=== PATIENT | female | born 2000 | race American Indian/Alaskan Native ===

== ENCOUNTER 2021-06-06 20:13 | Emergency (ER) | payer SELFPAY ==
--- NOTE | 2021-06-06 21:25 | XRay Report ---
CHEST 2 VIEWS INDICATION / CLINICAL INFORMATION: CHEST PAIN. COMPARISON: None available. FINDINGS: SUPPORT DEVICES: None. HEART / MEDIASTINUM: No significant abnormality. LUNGS / PLEURA: No significant pulmonary abnormality. No significant pleural effusion. No pneumothora x. ADDITIONAL FINDINGS: No significant additional findings. IMPRESSION: 1. No acute abnormality of the chest. Signer Name: Macho Ohara MD Signed: 06/06/2021 9:20 PM Workstation Name: [id number]
[2021-06-06 21:26] LABS: Basophils % (Auto) 0.5 % (0.0-1.8); Eosinophils # (Auto) 0.1 K/mm3 (0.0-0.4); Hematocrit 39.5 % (30.3-42.9); Hemoglobin 12.3 gm/dl (10.1-14.3); Lymphocytes # (Auto) 2.5 K/mm3 (1.2-5.4); Lymphocytes % (Auto) 41.3 % (13.4-35.0); Mean Corpuscular HGB Conc 31 % (30-34); Mean Corpuscular Volume 80 fl (79-97); Monocytes # (Auto) 0.4 K/mm3 (0.0-0.8); Monocytes % (Auto) 6.4 % (0.0-7.3); Platelet Count 241 K/mm3 (140-440); Red Blood Count 4.96 M/mm3 (3.65-5.03); Red Cell Distribution Width 13.9 % (13.2-15.2)
[2021-06-06 21:28] LABS: Alanine Aminotransferase 11 units/L (7-56); Albumin 4.4 g/dL (3.9-5); BUN/Creatinine Ratio 15; Blood Urea Nitrogen 12 mg/dL (7-17); Calcium 9.9 mg/dL (8.4-10.2); Hemolysis Index 5
[2021-06-06] MEDS: ASPIRIN 325 MG TAB PO ONE (22:00)
--- NOTE | 2021-06-06 22:15 | Emergency Department Report ---
ED Chest Pain HPI - General Chief Complaint: Chest Pain Stated Complaint: CHEST DISCOMFORT/HIGH BP Time Seen by Provider: 06/06/21 22:08 Source: patient Mode of arrival: Ambulatory Limitations: No Limitations - History of Present Illness MD Complaint: chest pain -: Gradual, month(s) (2) Pain Radiation: none Severity: mild Quality: heaviness, dull Consistency: constant Improves With: nothing Worsens With: nothing re: denies: vomting, diaphoresis, dyspnea, sense of impending doom Other Symptoms: denies: syncope, acid taste in mouth, leg swelling, palpitations, burping - Related Data Allergies Allergy/AdvReac Type Severity Reaction Status Date / Time Penicillins Allergy Unknown Verified 06/06/21 20:45 Heart Score - HEART Score History: Slightly suspicious EKG: Normal Age: < 45 Risk factors: 1-2 risk factors Troponin: < normal limit HEART Score: 1 - EKG Read Time Time EKG Completed: 08:20 EKG Read Time: 08:25 ED Review of Systems ROS: Stated complaint: CHEST DISCOMFORT/HIGH BP Other details as noted in HPI Comment: All other systems reviewed and negative ED Physical Exam - General Limitations: No Limitations General appearance: alert, in no apparent distress - Head Head exam: Present: atraumatic, normocephalic - Eye Eye exam: Present: normal appearance, PERRL, EOMI Pupils: Present: normal accommodation - ENT ENT exam: Present: normal exam, normal orophraynx, mucous membranes moist, TM's normal bilaterally - Neck Neck exam: Present: normal inspection, full ROM - Respiratory Respiratory exam: Present: normal lung sounds bilaterally. Absent: respiratory distress, wheezes - Cardiovascular Cardiovascular Exam: Present: regular rate, normal rhythm. Absent: systolic murmur, diastolic murmur, rubs, gallop - GI/Abdominal GI/Abdominal exam: Present: soft, normal bowel sounds - Extremities Exam Extremities exam: Present: normal inspection - Back Exam Back exam: Present: normal inspection - Neurological Exam Neurological exam: Present: alert, oriented X3 - Psychiatric Psychiatric exam: Present: normal affect, normal mood - Skin Skin exam: Present: warm, dry, intact, normal color. Absent: rash OSMAR score - Osmar Score Age > 65: (0) No Aspirin use within the Past 7 Days: (0) No 3 or more CAD Risk Factors: (0) No 2 or more Angina events in past 24 hrs: (0) No Known CAD with more than 50% Stenosis: (0) No Elevated Cardiac Markers: (0) No ST Deviation Greater than 0.5mm: (0) No OSMAR Score: 0 ED Medical Decision Making - Lab Data Result diagrams: 06/06/21 20:53 06/06/21 20:53 - EKG Data EKG shows normal: sinus rhythm Rate: normal - EKG Data When compared to previous EKG there are: no significant change Interpretation: normal EKG - Radiology Data Radiology results: report reviewed [facility] [address] [place] [address] XRay Report Signed Patient: CORBIN MARINO MR#: [id number] : 2000 Acct:[id number] Age/Sex: 20 / F ADM Date: 06/06/21 Loc: ED Attending Dr: Ordering Physician: MARIANA CASTAÑEDA MD Date of Service: 06/06/21 Procedure(s): XR chest routine 2V Accession Number(s): [id number] cc: ED MD MADDY Fluoro Time In Minutes: CHEST 2 VIEWS INDICATION / CLINICAL INFORMATION: CHEST PAIN. COMPARISON: None available. FINDINGS: SUPPORT DEVICES: None. HEART / MEDIASTINUM: No significant abnormality. LUNGS / PLEURA: No significant pulmonary abnormality. No significant pleural effusion. No pneumothorax. ADDITIONAL FINDINGS: No significant additional findings. IMPRESSION: 1. No acute abnormality of the chest. Signer Name: Macho Ohara MD Signed: 06/06/2021 9:20 PM Workstation Name: [id number] Transcribed By: [place] Dictated By: Macho Ohara MD Electronically Authenticated By: Macho Ohara MD Signed Date/Time: 06/06/212119 DD/ 19 TD/TT: Print - Medical Decision Making This patient presents with chest pain that is very unlikely angina or acute coronary syndrome. The emergency department evaluation has not identified any cause for suspicion that this chest pain has a cardiac etiology. Based on their history, EKG (which showed no evidence of ischemia or infarction) and imaging, in addition to the patient's physical exam, I see no evidence at this time for a malignant etiology for the patient's chest pain. There is no acute evidence for pulmonary embolus, acute myocardial infarction, pneumothorax, Boerhaeve syndrome, cardiac tamponade, thoracic artery dissection, or any other emergent cardiac, pulmonary or aortic pathology. Given the low pre-test probability for cardiac etiology of chest pain and the absence of any sign of ischemia or infar ction, discharge for outpatient follow-up and further evaluation is reasonable. I have explained to the patient that even though a cardiac problem is very unlikely, follow-up and further testing is required to reduce further the already small uncertainty that exists. Other life-threatening diagnoses have been considered. The patient understands the need to return immediately if their symptoms worsen or they develop any new symptoms, and not to engage in any significant exertional activity until follow-up is obtained. Critical care attestation.: If time is entered above; I have spent that time in minutes in the direct care of this critically ill patient, excluding procedure time. ED Disposition Clinical Impression: Chest pain Disposition: HOME / SELF CARE / HOMELESS Is pt being admited?: No Does the pt Need Aspirin: No Condition: Stable Instructions: Nonspecific Chest Pain, Adult Additional Instructions: You were evaluated emergency department today for chest pain. 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 Please schedule an appointment for follow-up with your primary care physician as soon as possible. Return to emergency department if you expands worsening uncontrolled chest pain, shortness of breath, lightheadedness, feeling faint, nausea, vomiting or any other concerning symptoms. Referrals: CHRISTIANNE HUDDLESTON MD [Staff Physician] - 3-5 Days GAMA HUDDLESTON MD [Staff Physician] - 3-5 Days [facility]IMARY [facility], [Referring] - 3-5 Days TOM PINEDA MD [Staff Physician] - 3-5 Days (Please be sure to follow-up with Dr. Tom Pineda and regards to for the management of your and anxiety. And also for coordination with cardiology should you need any further evaluation for the chest discomfort associated with your anxiety episodes.) DON HUDDLESTON MD [Staff Physician] - 3-5 Days
[2021-06-06 23:52] VITALS: BP 169/103
--- NOTE | 2021-06-08 09:13 | Electrocardiograph Report ---
[facility] Test Date: 2021-06-06 Test Time: 20:19:11 Pat Name: CORBIN MARINO Department: Room: Gender: F Maintenance Shop Laborer: RONALD : 2000 Requested By: SACHA PATRICK Order Number: [id number] Reading MD: Samir Max Measurements Intervals [place] Rate: 99 P: 24 [place]: 157 QRS: 53 QRSD: 92 T: 31 QT: 328 QTc: 421 Interpretive Statements Sinus rhythm No previous ECG available for comparison Electronically Signed On 06-08-2021 9:12:35 EST by Samir Max
== END 2021-06-06 23:50 | disposition home or self-care (01) ==
LOC: ED 20:13
DX: R07.9 Chest pain, unspecified (principal); Z88.1 Allergy status to other antibiotic agents
CPT/HCPCS: 36415; 71046; 80053; 84484; 85025; 93005; 99284